=== PATIENT | female | born 1975 | race Caucasian/White ===

== ENCOUNTER 2017-01-12 21:47 | Emergency (ER) | payer OTHER ==
[~2017-01-12] VITALS: Ht 154.9 cm; Wt 51.7 kg
[~2017-01-12 21:47] MED LIST: ALBUTEROL17 G1 IH; AMIODARONE HCL200 MG PO; ASCOMP WITH CO1 EACH PO; ASPIR-LOW81 MG PO; ATIVAN0.5 MG PO; ATIVAN1 MG PO; ATORVASTATIN CA40 MG PO; AUGMENTIN875 MG PO; BACTRIM,SEPT1 TABLET PO; CELEXA40 MG PO; COLACE100 MG PO; CUBICIN500 MG/10 IV; FLEXERIL10 MG PO; ISENTRESS400 MG PO; LAMICTAL200 MG PO; LIPITOR80 MG PO; MYSOLINE250 MG PO; NAPROSYN500 MG PO; NEPHRO-VITE TA0.8 MG PO; NEXIUM; NEXIUM40 MG PO; OXYCODONE5 MG PO; PLAVIX75 MG PO; PREDNISONE10 MG PO; PRIMIDONE250 MG PO; PROTONIX40 MG PO; RENVELA800 MG PO; TRAMADOL HCL50 MG PO; TRUVADA1 TABLET PO; TYLENOL325 M1 PO; XANAX0.5 MG PO; ZANTAC300 MG PO; ZOFRAN4 MG PO; ZOFRAN8 M1 PO
[2017-01-12] MEDS ORDERED: MOTRIN600 MG PO (23:44)
[2017-01-13 00:10] VITALS: BP 111/75
[2017-01-13] MEDS ORDERED: ARIPIPRAZOLE2 MG PO (00:10)
== END 2017-01-13 00:12 | disposition home or self-care (01) ==
LOC: EME 21:47
DX: H92.02 Otalgia, left ear (principal); S00.83XA Contusion of other part of head, initial encounter; W50.0XXA Accidental hit or strike by another person, initial encounter; Y93.9 Activity, unspecified; S09.90XA Unspecified injury of head, initial encounter
CPT/HCPCS: 70450; 70486; 72125; 99281; 99284